=== PATIENT | male | born 1970 | race Two or more races ===

== ENCOUNTER 2023-04-23 16:49 | Emergency (ER) | payer MEDICAID, OTHER ==
[~2023-04-23] VITALS: Ht 165.1 cm; Wt 78.9 kg
[2023-04-23] MEDS ORDERED: IBUP-1456 PO (17:38)
[2023-04-23] MEDS ORDERED: LIDO5PAD8 EX (17:38)
[2023-04-23] MEDS ORDERED: KETOROLAC TROMETH 60MG/2ML VIAL IM ONE (17:45)
[2023-04-23 17:50] VITALS: BP 176/97; PULSE 86; RESP 20; TEMP 98; O2SAT 100
== END 2023-04-23 18:02 | disposition home or self-care (01) ==
LOC: ER 16:49
DX: M77.8 Other enthesopathies, not elsewhere classified (principal)
CPT/HCPCS: 73030; 96372; 99283; J1885